=== PATIENT | female | born 1950 | race Caucasian/White ===

== ENCOUNTER 2016-12-10 00:15 | Emergency (ER) | payer OTHER ==
[~2016-12-10] VITALS: Ht 162.6 cm; Wt 63.5 kg
--- NOTE | ~2016-12-10 | EKG ---
[place] [address] [facility] [place] [address] ELECTROCARDIOGRAM REPORT Name: GIN VIZCAINO Room #: DEP HALE INFIRMARYSarah#: [id number] Admission: 12/10/16 Attend Phys: Discharge: 12/10/16 Date of : 50 Report #: [id number] THIS REPORT FOR: //name// [facility] ED Test Date: 2016-12-10 Test Time: 00:20:43 Pat Name: GIN VIZCIANO Department: Room: Gender: F Silo Tender: SARAVANAN : 1950 Requested By: Yarelis Dyson Order Number: [id number] MD: Giorgi Triana Measurements Intervals [place] Rate: 71 P: 76 VT: 168 QRS: 33 QRSD: 92 T: 51 QT: 436 QTc: 474 Interpretive Statements Sinus rhythm Low voltage, precordial leads No previous ECG available for comparison Electronically Signed On 12-12-2016 13:08:25 CDT by Giorgi Triana [email or web address] <ELECTRONICALLY SIGNED> By: Giorgi Triana MD 12/12/16 1308 0020 0020 MD JENNIFER Ibarra
[~2016-12-10 00:15] MED LIST: MECLIZINE HCL25 M1 PO; SYNTHROID100 MCG PO; ZOFRAN4 MG PO
[2016-12-10 01:17] LABS: ABSOLUTE NEUTROPHILS 3.3 thou/uL (1.4-8.2); BASOPHILS 0.8 % (0.0-2.0); EOSINOPHILS 2.5 % (0.0-3.0); HEMATOCRIT 42.7 % (37.0-47.0); HEMOGLOBIN 15.2 gm/dL (12.0-15.0); LYMPHOCYTES 33.4 % (24.0-44.0); MCH 31.6 pg (26.0-34.0); MCHC 35.4 g/dL (28.0-37.0); MCV 89.3 fL (80.0-100.0); MONOCYTES 8.8 % (1.0-8.0); PLATELET COUNT 195 thou/uL (150-400); POLYS 54.5 % (36.0-66.0); RBC 4.79 mil/uL (4.20-5.00); RDW 12.6 % (10.5-14.5); WBC 6.1 thou/uL (4.0-11.0)
[2016-12-10 01:22] LABS: MANUAL DIFF NO
[2016-12-10 01:28] LABS: APTT 26.1 Seconds (24.5-32.8); PROTIME 10.4 Seconds (9.3-11.4)
[2016-12-10 01:34] LABS: ANION GAP 7 mmol/L (7-16); BUN 20 mg/dL (7-18); CALCIUM 8.7 mg/dL (8.5-10.1); CHLORIDE 106 mmol/L (98-107); CO2 27 mmol/L (21-32); CREATININE 0.9 mg/dL (0.6-1.3); GLUCOSE 106 mg/dL (70-99); POTASSIUM 3.8 mmol/L (3.5-5.1); SODIUM 140 mmol/L (136-145)
[2016-12-10 01:38] LABS: ALBUMIN 3.4 g/dL (3.4-5.0); ALKALINE PHOSPHATASE 84 U/L (46-116); NT-PRO BRAIN NAT PEPTIDE 31 pg/mL (<300); SGOT 19 U/L (15-37); SGPT 19 U/L (30-65); TOTAL BILIRUBIN 0.5 mg/dL (<0.1-1.0); TOTAL PROTEIN 6.5 g/dL (6.4-8.2); TROPONIN-I < 0.04 ng/mL (<0.04-0.07)
[2016-12-10 03:35] VITALS: BP 128/64
== END 2016-12-10 03:36 | disposition home or self-care (01) ==
LOC: ER 00:15
PROVIDERS: Emergency Medicine
DX: R07.9 Chest pain, unspecified (principal); G56.00 Carpal tunnel syndrome, unspecified upper limb; Z90.89 Acquired absence of other organs; Z85.828 Personal history of other malignant neoplasm of skin; Z88.2 Allergy status to sulfonamides